=== PATIENT | female | born 1985 | race Caucasian/White ===

== ENCOUNTER → 2018-08-23 16:06 | Outpatient (CLI) | payer OTHER, SELFPAY | PROVIDERS: Family Provider Registered Nurse; PCP Registered Nurse; Visit Provider Registered Nurse | DX: R16.0 Hepatomegaly, not elsewhere classified (principal); Z53.9 Procedure and treatment not carried out, unspecified reason ==

== ENCOUNTER → 2018-09-30 13:50 | Outpatient (CLI) | payer OTHER, SELFPAY ==
--- NOTE | 2018-09-30 | DI.US.S_ITS ---
PROCEDURE: US OB <= 14 WEEKS FETUS INDICATIONS: BLEEDING OUTSIDE/PRIOR DATING DATA: Last menstrual period (LMP): 07/18/18. LMP-based estimated date of delivery (ZELDA): 04/24/19, assuming viable gestation. TECHNIQUE: Real-time scanning was performed of the fetus and maternal pelvic organs, with image documentation. Endovaginal scanning was also performed to better visualize the fetus and maternal ovaries. COMPARISON: None. FINDINGS: Embryo: What appears to be a gestational sac with mean sac diameter of 2.2 cm would correlate with the gestational age of 7 weeks 1 day, plus or minus one week, but a pole is not seen. Measurement variability in dating: +/- 4 weeks by LMP, +/- 7 days by mean sac diameter (use before 6 weeks gestation if crown-rump length not able to be measured), +/- 5 days by crown-rump length (up to 8 weeks 6 days gestation), +/- 7 days by crown-rump length (up to 13 weeks 6 days gestation). Maternal organs: Ovaries not seen on the right, normal on the left. Limited images through the kidneys demonstrate no hydronephrosis. IMPRESSION: What appears to be a gestational sac with a size that would correlate with a gestation of 7 weeks 1 day is present centrally within the endometrial canal but an internal yolk sac or pole is not seen. Presumed blighted ovum. No adnexal pathology seen that would indicate concurrent ectopic . Please correlate with quantitative beta hCG. Dictated by: Jaron Swain M.D. on 09/30/2018 at 14:38 Approved by: Jaron Swain M.D. on 09/30/2018 at 14:40
== END ==
PROVIDERS: Family Provider Registered Nurse; PCP Registered Nurse; Visit Provider Midwife
DX: O20.9 Hemorrhage in early pregnancy, unspecified (principal); Z3A.01 Less than 8 weeks gestation of pregnancy
CPT/HCPCS: 76801; 76817

== ENCOUNTER 2018-10-02 18:40 | Emergency (ER) | payer OTHER, SELFPAY ==
--- NOTE | 2018-10-02 18:51 | ED_ITS ---
HPI - General Adult General Chief complaint: Vaginal Bleeding Stated complaint: vaginal bleeding Time Seen by Provider: 10/02/18 18:48 Source: patient Mode of arrival: ambulatory Limitations: no limitations History of Present Illness HPI narrative: Patient is a who found out 3 days ago that she had a intrauterine demise by ultrasound. She reported that it was approximately 7 weeks along. She stated this was ordered by her mop handle assembler after she had some vaginal bleeding over the weekend. She states that she did not have any vaginal bleeding until prior to arrival here in the ER where she had sudden onset of profuse bleeding having to change a pad more than 1 time an hour. She also became somewhat lightheaded. She came into the emergency room for evaluation. Related Data Home Medications Medication Instructions Recorded Confirmed VITAMIN D (Vitamin D3) 10,000 unit PO QDAY #0 09/27/12 norgestrel-ethinyl estradiol 1 tab PO Q DAY #0 09/27/12 [Nay (28)] Allergies Allergy/AdvReac Type Severity Reaction Status Date / Time CODEINE Allergy Intermediate HIVES Uncoded 02/27/18 12:53 SULFA Allergy Intermediate HIVES Uncoded 02/27/18 12:53 Review of Systems Constitutional Denies fatigue, Denies fever(s), Denies frequent falls and Denies headache(s) ENT Ears, Nose, Mouth, and Throat: Denies vertigo, Reports dizziness and Denies headache(s) Cardiovascular Denies chest pain, Denies diaphoresis, Denies syncope, Denies rapid heart rate, Denies irregular heart rhythm, Denies palpitations and Denies dyspnea Respiratory Denies cough and Denies dyspnea Gastrointestinal Gastrointestinal: Reports cramping, Denies nausea and Denies vomiting Genitourinary Denies dysuria, Denies flank pain, Denies urinary incontinence and Reports vaginal discharge Musculoskeletal Denies myalgias and Denies arthralgias Integumentary/Breasts Denies lesions and Denies rash Neurologic Denies confusion, Denies vertigo, Reports dizziness, Denies syncope, Denies frequent falls and Denies headache(s) Psychiatric Denies confusion Endocrine Denies fatigue and Denies palpitations Hematologic/Lymphatic Denies easy bleeding and Denies easy bruising PFSH Medical History Healthy adult (Acute) Surgical History No pertinent past surgical history (Acute) Exam Initial Vital Signs Initial Vital Signs: Vital Signs Pulse Rate 79 10/02/18 19:00 Respiratory Rate 20 10/02/18 19:00 Blood Pressure 88/55 L 10/02/18 19:00 Pulse Oximetry 100 10/02/18 19:00 Const General: cooperative, well developed, well groomed and No acute distress Orientation: alert, awake and oriented x3 HENMT Head: normal to inspection and normocephalic Resp Effort & Inspection: normal respiratory effort Auscultation: clear to auscultation bilaterally Cardio Rate: regular rate Rhythm: regular rhythm Pulses: radial pulses present GI Inspection: non-distended Palpation: soft, No firm and No tender External Female Exam: external appearance normal Speculum Exam - Vagina: normal appearance of the vagina, vaginal bleeding and tissue present in vagina Speculum Exam - Cervix: cervical os open OB/External & Speculum: tissue present in vagina, cervical os open and vaginal bleeding Skin Lesions: no lesions Rashes: no rashes Neuro General: alert, awake and oriented x3 Cognition: normal cognition Speech: speech normal Extrem General: normal to inspection and capillary refill normal Psych Appearance: grossly normal and well kempt Course Orders Ordered: ED Orders 10/02/18 18:50 ABO RH Type Stat Basic Metabolic Panel Stat Complete Blood Count AUTO DIFF Stat HCG Quantitative Stat Discontinued Medications Sodium Chloride (Normal Saline 0.9%) 1,000 mls @ 1,000 mls/hr IV BOLUS ONE Stop: 10/02/18 20:06 Vital Signs - 8 hr 10/02/18 19:00 Pulse Rate 79 Respiratory Rate 20 Blood Pressure 88/55 L Pulse Oximetry 100 Medical Decision Making Lab Data Lab results reviewed: Yes I reviewed the patient's lab results. Result diagrams: 10/02/18 18:50 10/02/18 18:50 Lab Results 10/02/18 10/02/18 10/02/18 Range/Units 18:50 18:50 18:50 WBC 11.4 H (4.5-11.0) X10^3/uL RBC 4.04 (4.0-5.2) X10^6/uL Hgb 12.5 (12.0-16.0) g/dL Hct 36.8 (36-46) % MCV 91.2 (80-100) fL MCH 30.9 (26-34) PG MCHC 33.9 (30-36) % RDW 11.8 (11.6-14.8) % Plt Count 305 (150-400) X10^3/uL Neut % (Auto) 54.7 (50-75) % Lymph % (Auto) 35.2 (25-40) % [place] % (Auto) 7.8 (3-14) % Eos % (Auto) 1.8 L (2-4) % Baso % (Auto) 0.5 (0-2) % Neut # (Auto) 6200 H (5761-4231) /uL Sodium 142 (137-145) mmol/L Potassium 3.3 L (3.4-5.1) mmol/L Chloride 103 (98-107) mmol/L Carbon Dioxide 24 (22-32) mmol/L BUN 12 (7-17) mg/dL Creatinine 0.60 (0.52-1.04) mg/dL Estimated GFR > 60.0 (>60) mL/min BUN/Creatinine Ratio 20.0 (6-22) Glucose 110 H (70-100) mg/dL Calcium 9.3 (8.4-10.2) mg/dL HCG, Quant 2080.0 mIU/mL Blood Type 10/02/18 Range/Units 18:50 WBC (4.5-11.0) X10^3/uL RBC (4.0-5.2) X10^6/uL Hgb (12.0-16.0) g/dL Hct (36-46) % MCV (80-100) fL MCH (26-34) PG MCHC (30-36) % RDW (11.6-14.8) % Plt Count (150-400) X10^3/uL Neut % (Auto) (50-75) % Lymph % (Auto) (25-40) % [place] % (Auto) (3-14) % Eos % (Auto) (2-4) % Baso % (Auto) (0-2) % Neut # (Auto) (7771-4346) /uL Sodium (137-145) mmol/L Potassium (3.4-5.1) mmol/L Chloride (98-107) mmol/L Carbon Dioxide (22-32) mmol/L BUN (7-17) mg/dL Creatinine (0.52-1.04) mg/dL Estimated GFR (>60) mL/min BUN/Creatinine Ratio (6-22) Glucose (70-100) mg/dL Calcium (8.4-10.2) mg/dL HCG, Quant mIU/mL Blood Type A Positive MDM Narrative Medical decision making narrative: Blood type is A-positive. Patient is not anemic. Is not tachycardic. Did have tissue in the vaginal vault which I was able to remove. Also had tissue in the cervix which would not easily come out so I left it in place. Patient did have reduction in her bleeding after this removal of tissue from the vagina. Informed her that she could potentially have more vaginal bleeding given that there was still tissue in the cervix. Will hold on further workup for now. Patient was given return precautions. She expressed understanding and agreement with plan. Discharge Plan Departure Patient Disposition: Home Clinical Impression: Incomplete Instructions: Dealing With Miscarriage, DI for Miscarriage Activity Restrictions/Additional Instructions: I would expect more bleeding over the next 12-24 hours. I would contact your OB provider tomorrow for a follow-up. Return to the emergency department for any new symptoms, bleeding more than 1 pad an hour for more than 4 hr, worsening pain, worsening of the lightheadedness, or any other concerning symptoms. Prescriptions: No Action norgestrel-ethinyl estradiol [Nay (28)] 1 EACH tablet 1 tab PO Q DAY Qty: 0 RF: 0 VITAMIN D (Vitamin D3) 10,000 unit PO QDAY Qty: 0 RF: 0
[2018-10-02 19:00] VITALS: BP 88/55; PULSE 79; RESP 20; O2SAT 100
[2018-10-02] MEDS: SODIUM CHLORIDE 0.9% 1,000 ML 1000 ML IV (19:15)
[2018-10-02 19:18] LABS: Add Manual Diff / Slide Review NO; Basophils Percent Auto 0.5 % (0-2); Eosinophils Percent Auto 1.8 % (2-4); Hematocrit 36.8 % (36-46); Hemoglobin 12.5 g/dL (12.0-16.0); Lymphocytes Percent Auto 35.2 % (25-40); Mean Corpuscular HGB Conc 33.9 % (30-36); Mean Corpuscular Hemoglobin 30.9 PG (26-34); Mean Corpuscular Volume 91.2 fL (80-100); Monocytes Percent Auto 7.8 % (3-14); Neutrophils Absolute Auto 6200 /uL (3000-5900); Neutrophils Percent Auto 54.7 % (50-75); Platelet Count 305 X10^3/uL (150-400); Red Blood Cell Count 4.04 X10^6/uL (4.0-5.2); Red Cell Distribution Width 11.8 % (11.6-14.8); White Blood Cell Count 11.4 X10^3/uL (4.5-11.0)
[2018-10-02 19:36] LABS: Blood Urea Nitrogen 12 mg/dL (7-17); Calcium 9.3 mg/dL (8.4-10.2); Carbon Dioxide 24 mmol/L (22-32); Chloride 103 mmol/L (98-107); Estimated Glomerular Filt Rate > 60.0 mL/min (>60); Glucose 110 mg/dL (70-100); HEMOLYSIS < 15 (0-50); Potassium 3.3 mmol/L (3.4-5.1); Sodium 142 mmol/L (137-145)
[2018-10-02 20:44] VITALS: BP 96/52; PULSE 88; RESP 16; O2SAT 100
== END 2018-10-02 20:54 | disposition home or self-care (01) ==
PROVIDERS: Emergency Provider Emergency Medicine; Family Provider Registered Nurse; PCP Registered Nurse
DX: O03.4 Incomplete spontaneous abortion without complication (principal)
CPT/HCPCS: 36591; 80048; 84702; 85025; 86900; 86901; 96360; 99283; 99284

== ENCOUNTER → 2019-09-15 17:38 | Outpatient (CLI) | payer OTHER, SELFPAY ==
[2019-09-15 18:54] LABS: HCG Quantitative /Beta subunit 118460 mIU/mL
== END ==
PROVIDERS: PCP Midwife; Visit Provider Midwife
DX: Z34.81 Encounter for supervision of other normal pregnancy, first trimester (principal)
CPT/HCPCS: 36415; 84702

== ENCOUNTER → 2019-12-04 09:42 | Outpatient (CLI) | payer OTHER, SELFPAY ==
--- NOTE | 2019-12-04 | DI.US.S_ITS ---
PROCEDURE: US OB >= 14 WEEKS FETUS INDICATIONS: ANATOMY OUTSIDE/PRIOR DATING DATA: Last menstrual period (LMP): 02/15/19. LMP-based estimated date of delivery (ZELDA): 04/23/20. First dating scan (date and location): 12/04/19. Estimated date of delivery (ZELDA) from first dating scan: 04/20/20. TECHNIQUE: Real-time scanning was performed of the fetus, with image documentation and biometric measurements. COMPARISON: [facility], OB <= 14 WEEKS FETUS, 09/30/2018, 13:59. FINDINGS: General: A single living intrauterine gestation is present. Presentation: Vertex. Placenta: Placental position is posterior, without previa. Amniotic fluid index: 14.5 cm, normal range is 5-24 cm. heart rate: 155 beats per minute. Maternal cervical canal: 4.2 cm long. Normal lower limit is 2.5 cm. biometrics: Biparietal diameter: 4.7 cm 20 weeks one day Head circumference: 19.7 cm 20 weeks one day Abdominal circumference: 15.1 cm 20 weeks 3 days Femur length: 3.2 cm 19 weeks 6 days Estimated gestational age from initial scan: Not applicable Composite gestational age from present scan: 20 weeks 2 days Estimated weight and percentile: 334 g 61st percentile Measurement variability for biometric dating: +/- 7 days from 14 weeks to 15 weeks 6 days gestation, +/- 10 days from 16 weeks to 21 weeks 6 days gestation, +/- 2 weeks from 22 weeks to 27 weeks 6 days gestation, +/- 3 weeks for 28 weeks gestation or later. weight reference: 4500 g or EFW >90/95% is considered macrosomia or large for gestational age. EFW <10% is small for gestational age. EFW 5% or less is considered intra-uterine growth restriction. Anatomic survey: Neuro: Ventricles are non-dilated at less than 10 mm. posterior fossa is of limited visualization. Nuchal skin fold: Not well-seen. Face: Nose and lips, facial profile are normal. Spine: No evidence for spina bifida. Heart: 4-chambered heart is present, with normal ventricular outflow tracts. Diaphragm: Diaphragm is intact. Stomach: Left-sided stomach is present. Kidneys: No hydronephrosis. Normal is less than 5 mm in 2nd trimester, less than 7 mm in 3rd trimester. Cord: 3-vessel cord has orthotopic insertion. Bladder: Normal in size. Extremities: All 4 extremities identified. IMPRESSION: 1. Single live intrauterine with ultrasound gestational age today is 20 weeks 2 days. 2. Nuchal region as well as posterior fossa are not well seen and suboptimally evaluated. Recommend interval follow for additional evaluation. Dictated by: Dunia Kyle M.D. on 12/04/2019 at 14:50 Approved by: Dunia Kyle M.D. on 12/04/2019 at 15:19
== END ==
PROVIDERS: PCP Midwife; Visit Provider Midwife
DX: Z36.89 Encounter for other specified antenatal screening (principal); Z3A.20 20 weeks gestation of pregnancy
CPT/HCPCS: 76811

== ENCOUNTER → 2020-01-02 10:41 | Outpatient (CLI) | payer OTHER, SELFPAY ==
--- NOTE | 2020-01-02 | DI.US.S_ITS ---
PROCEDURE: US OB FOLLOW UP INDICATIONS: POSTERIOR FOSSA AND NUCHAL REGION OUTSIDE/PRIOR DATING DATA: Last menstrual period (LMP): 02/15/19. LMP-based estimated date of delivery (ZELDA): 04/23/20. First dating scan (date and location): 12/04/19. Estimated date of delivery (ZELDA) from first dating scan: 04/20/20. TECHNIQUE: Real-time scanning was performed of the fetus, with image documentation and biometric measurements. Endovaginal scanning: No COMPARISON: None. FINDINGS: General: A single living intrauterine gestation is present. Presentation: Vertex. Placenta: Placental position is posterior, without previa. Amniotic fluid index: Subjectively normal. heart rate: 157 beats per minute. Maternal cervical canal: 3.8 cm long. Normal lower limit is 2.5 cm. Posterior fossa and nuchal region appear normal. IMPRESSION: Single living IUP redemonstrated in the posterior fossa and nuchal region appears normal. Dictated by: Paul Arriaga [facility] Interpreted: Javier Victor MD on 01/02/2020 at 14:56 Approved by: Javier Victor M.D. on 01/02/2020 at 16:29
== END ==
PROVIDERS: PCP Midwife; Referring Provider Midwife; Visit Provider Midwife
DX: Z36.2 Encounter for other antenatal screening follow-up (principal)
CPT/HCPCS: 76816

== ENCOUNTER 2021-07-03 20:22 | Emergency (ER) | payer OTHER, SELFPAY ==
[2021-07-03 20:31] VITALS: BP 116/76; PULSE 88; RESP 14; TEMP 36.3; O2SAT 100; BMI 21.4
== END 2021-07-03 22:10 | disposition left against medical advice (07) ==
PROVIDERS: Emergency Provider Emergency Medicine; PCP Midwife
DX: Z20.822 Contact with and (suspected) exposure to COVID-19 (principal)
CPT/HCPCS: 99281

== ENCOUNTER → 2022-05-16 15:19 | Outpatient (CLI) | payer BC, SELFPAY ==
[2022-05-16 16:25] LABS: Add Manual Diff / Slide Review NO; Basophils Absolute Auto 0 /uL (0-100); Basophils Percent Auto 0.5 % (0-2); Eosinophils Absolute Auto 200 /uL (0-450); Eosinophils Percent Auto 2.1 % (2-4); Hematocrit 38.4 % (36-46); Hemoglobin 13.2 g/dL (12.0-16.0); Lymphocytes Absolute Auto 2000 /uL (1100-4500); Lymphocytes Percent Auto 25.3 % (25-40); Mean Corpuscular HGB Conc 34.5 % (30-36); Mean Corpuscular Hemoglobin 31.1 PG (26-34); Mean Corpuscular Volume 90.2 fL (80-100); Monocytes Absolute Auto 600 /uL (0-900); Monocytes Percent Auto 8.1 % (3-14); Neutrophils Absolute Auto 5100 /uL (1500-7000); Platelet Count 240 X10^3/uL (150-400); Red Blood Cell Count 4.26 X10^6/uL (4.0-5.2); Red Cell Distribution Width 12.3 % (11.6-14.8); White Blood Cell Count 7.9 X10^3/uL (4.5-11.0)
[2022-05-16 16:44] LABS: HEMOLYSIS < 15 (0-50); Iron 136 ug/dL (37-170)
[2022-05-16 16:55] LABS: Percent Iron Saturation 52 % (15-50); Total Iron Binding Capacity 262 ug/dL (265-497); Transferrin 223 mg/dL (206-381)
[2022-05-16 17:01] LABS: Luteinizing Hormone 0.505 mIU/mL
[2022-05-16 17:16] LABS: Cancer Antigen 125 13.9 U/mL (0-35)
[2022-05-19 17:22] LABS: Testosterone Total 13.8 ng/dL (10.0-55.0)
== END ==
PROVIDERS: PCP Family Medicine; Referring Provider Obstetrics & Gynecology; Visit Provider Obstetrics & Gynecology
DX: L65.9 Nonscarring hair loss, unspecified (principal); Z15.01 Genetic susceptibility to malignant neoplasm of breast; Z15.02 Genetic susceptibility to malignant neoplasm of ovary; Z15.09 Genetic susceptibility to other malignant neoplasm
CPT/HCPCS: 36415; 83002; 83540; 83550; 84402; 84403; 84439; 84443; 85025; 86304

== ENCOUNTER → 2023-05-02 15:40 | Outpatient (CLI) | payer BC, SELFPAY ==
--- NOTE | 2023-05-02 15:41 | DI.RAD.S_ITS ---
PROCEDURE: XR ANKLE RT MIN 3V INDICATIONS: pain without trauma TECHNIQUE: 3 views of the ankle were acquired. COMPARISON: None. FINDINGS: Bones: No fractures or dislocations. Ankle mortise is normally aligned. No suspicious bony lesions. Soft tissues: No tibiotalar joint effusion. Achilles tendon appears normal. IMPRESSION: No significant osseous abnormality. Dictated by: Que Moore M.D. on 05/02/2023 at 18:12 Approved by: Que Moore M.D. on 05/02/2023 at 18:15
== END ==
PROVIDERS: PCP Family Medicine; Referring Provider Family Medicine; Visit Provider Family Medicine
DX: M25.571 Pain in right ankle and joints of right foot (principal)
CPT/HCPCS: 73610

== ENCOUNTER → 2025-03-18 13:30 | Outpatient (CLI) | payer BC, SELFPAY ==
[2025-03-18 14:45] LABS: Cancer Antigen 125 10.1 U/mL (0-35)
== END ==
PROVIDERS: PCP Family Medicine; Referring Provider Nurse Practitioner Obstetrics & Gynecology; Visit Provider Nurse Practitioner Obstetrics & Gynecology
DX: Z15.01 Genetic susceptibility to malignant neoplasm of breast (principal)
CPT/HCPCS: 36415; 86304

== ENCOUNTER → 2025-08-07 07:30 | Outpatient (CLI) | payer BC, SELFPAY | LOC: LAB 07:31 | PROVIDERS: PCP Family Medicine; Visit Provider Nurse Practitioner Family | DX: R30.0 Dysuria (principal) | CPT/HCPCS: 87077; 87086; 87186 ==